=== PATIENT | male | born 1970 | race African-American/Black ===

== ENCOUNTER 2020-11-23 09:07 | Emergency (ER) | payer OTHER ==
[~2020-11-23] VITALS: Ht 177.8 cm; Wt 118.0 kg
[2020-11-23] MEDS ORDERED: ACETAMINOPHEN 500MG TABLET PO ONE (09:30)
[2020-11-23] MEDS ORDERED: METOCLOPRAMIDE HCL 5MG TABLET PO ONE (09:30)
[2020-11-23] MEDS ORDERED: KETOROLAC 60MG/2ML VIAL IM NR (11:00)
[2020-11-23 11:15] VITALS: BP 130/78
== END 2020-11-23 11:15 | disposition home or self-care (01) ==
LOC: ER 09:07
DX: R51.9 Headache, unspecified (principal); R03.0 Elevated blood-pressure reading, without diagnosis of hypertension
CPT/HCPCS: 70450; 96372; 99284; J1885; J8597